=== PATIENT | male | born 1955 | race Caucasian/White ===

== ENCOUNTER 2025-06-15 06:05 | Day surgery (SDC) | payer MEDICARE, OTHER, SELFPAY ==
[2025-06-04 11:55] VITALS: BMI 27.8
[2025-06-15] VITALS (12 sets, daily range): BP systolic 121–160; BP diastolic 75–94; BMI 27.8
[2025-06-15] MEDS: NORMOSOL-R/PLASMALYTE-A 1000 IV (07:26)
[2025-06-15] MEDS: ZOFRAN 4 MG IV (12:16)
[2025-06-15 12:37] LABS: Hematocrit 42.0 % (39.0-52.0); Hemoglobin 14.4 g/dL (13.0-18.0)
[2025-06-15 12:51] LABS: Blood Urea Nitrogen 10 mg/dl (9-20); Calcium 8.5 mg/dl (8.4-10.2); Carbon Dioxide 26 mmol/L (22-30); Chloride 103 mmol/L (98-107); Estimated Creatinine Clearance 95 ml/min; Glucose 154 mg/dl (70-99); Potassium 4.3 mmol/L (3.5-5.1); Sodium 134 mmol/L (135-145); eGFR > 60.00
[2025-06-15] MEDS: COMPAZINE 5 MG IV (12:58)
[2025-06-15] MEDS: NSS 1000 IV ×2 (13:05→20:06)
--- NOTE | 2025-06-15 14:59 | PTCARENOTE ---
1345 Pt arrived from PACU. AAOX3. IVF infusing. VSS. 96% on 2LO2. Engel draining yellow urine. 6 lap sites open to air with glue. Oriented to room and call mac.
[2025-06-15] MEDS: SENOKOT 17.2 MG PO (19:45)
[2025-06-15] MEDS: FLOMAX 0.4 MG PO (21:23)
[2025-06-16 03:09] VITALS: BP 151/91
[2025-06-16 07:33] LABS: Hematocrit 38.4 % (39.0-52.0); Hemoglobin 13.4 g/dL (13.0-18.0); Mean Corp Hgb Conc. 34.9 g/dL (33.0-37.0); Mean Corpuscular Volume 88.9 fL (80.0-94.0); Platelet Count 279 10^3/uL (130-400); Red Cell Dist. Width 13.2 % (11.5-14.5)
[2025-06-16 07:45] VITALS: BP 135/86
[2025-06-16 07:59] LABS: Blood Urea Nitrogen 12 mg/dl (9-20); Calcium 8.4 mg/dl (8.4-10.2); Carbon Dioxide 24 mmol/L (22-30); Chloride 99 mmol/L (98-107); Estimated Creatinine Clearance 86 ml/min; Glucose 96 mg/dl (70-99); Potassium 3.8 mmol/L (3.5-5.1); Sodium 130 mmol/L (135-145); eGFR > 60.00
--- NOTE | 2025-06-16 08:27 | W.PN.URO.CBU ---
Today's Communication / Plan
-
Discharge
Assessment / Plan
-
69M POD 1 s/p R partial nephrectomy
- Reg diet
- OOB/ambulate
- Engel removed
- PO pain control
- Labs stable
Discharge today
Diagnosis
-
Date of Service: June 16, 2025
-
Patient Diagnosis:
R renal mass
Post Op Day:1 s/p R partial nephrectomy
Subjective
-
Pain controlled, minimal
tolerated diet
no amb yet
Objective
-
Vital Signs
Temp Pulse Resp BP Pulse Ox
98.2 F 84 16 151/91 95
06/16/25 03:09 06/16/25 03:09 06/16/25 03:09 06/16/25 03:09 06/16/25 03:09
Intake and Output
06/15/25 06/16/25 06/17/25
06:59 06:59 06:59
Intake Total 2325 / 2325
Output Total 2700 / 2700
Balance -375 / -375
Intake:
IV fluids (Total) 825 / 825
Normosal 200 / 200
IV piggybacks 1500 / 1500
Output:
Urine, Engel 2700 / 2700
Laboratory Results
06/16/25 07:03
06/16/25 07:03
Physical Exam
-
General - well developed, well nourished, no acute distress
Chest - clear bilaterally
Abdomen - soft, non-tender, positive bowel sounds, no CVAT, no incisional pain or distention
Genitalia - normal
Rectal - normal
Skin - warm & dry with no rash
Neuro - AOx3, no motor deficits
Extremities - no clubbing, no cyanosis, no edema
Incision - clean, dry
Dressing - clean, dry, intact
[2025-06-16] MEDS: NORVASC 5 MG PO (08:46)
[2025-06-16] MEDS: PROTONIX 40 MG PO (08:46)
[2025-06-16] MEDS: SENOKOT 17.2 MG PO (08:47)
--- NOTE | 2025-06-16 09:47 | CM ---
manager channel reviewed patient's chart and met with patient and patient states he lives alone in a 2 story home, patient is independent with adl's and ambulation, no dme, patient drives, home today no needs, patient states he has been out of bed to
bathroom by himself today.
PCP: Dr Hand
Pharmacy: [facility]
Plan; Home today no needs.
[2025-06-16 11:20] VITALS: BP 148/90
== END 2025-06-16 13:07 | disposition home or self-care (01) ==
LOC: SDS 06:05
PROVIDERS: ATTENDING PHYSICIAN Urology; FAMILY PHYSICIAN Internal Medicine
DX: N28.89 Other specified disorders of kidney and ureter (principal); C64.1 Malignant neoplasm of right kidney, except renal pelvis
CPT/HCPCS: 50543; 80048; 85014; 85018; 85027; 86900; 86901; 86920; 88307